=== PATIENT | female | born 1990 | race Caucasian/White ===

== ENCOUNTER 2019-11-26 12:15 | Emergency (ER) | payer OTHER ==
[~2019-11-26] VITALS: Ht 177.8 cm; Wt 102.3 kg
[2019-11-26] MEDS ORDERED: IBUP200C25 PO (12:26)
[2019-11-26] MEDS ORDERED: PENICILLIN V POTASSIUM 500 MG TAB PO ONE (12:45)
[2019-11-26] MEDS ORDERED: IBUPROFEN 600 MG TAB PO ONE (12:45)
[2019-11-26] MEDS ORDERED: LIDOCAINE VISCOUS 2% SOLN 15ML UDC SS ONE (12:45)
[2019-11-26] MEDS ORDERED: IBUP-1022 PO (13:19)
[2019-11-26] MEDS ORDERED: PENI500T PO (13:19)
[2019-11-26] MEDS ORDERED: LIDO1SOL8 PO (13:19)
[2019-11-26 13:20] VITALS: BP 127/73
== END 2019-11-26 13:27 | disposition home or self-care (01) ==
LOC: M ED 12:15
DX: K02.9 Dental caries, unspecified (principal); F17.210 Nicotine dependence, cigarettes, uncomplicated; Z79.899 Other long term (current) drug therapy

== ENCOUNTER 2020-08-15 10:36 | Emergency (ER) | payer OTHER ==
[~2020-08-15] VITALS: Ht 177.8 cm; Wt 102.3 kg
[~2020-08-15 10:36] MED LIST: IBUP-1022 PO; IBUP200C25 PO; LIDO2SOL17 PO; PENI500T PO
[2020-08-15] MEDS ORDERED: FAMOTIDINE INJ 20MG/2ML VIAL (S0028 PER 1) IVP ONE (10:45)
[2020-08-15] MEDS ORDERED: BENA25CA4 PO (11:45)
[2020-08-15] MEDS ORDERED: PRED20TA PO (11:46)
[2020-08-15 12:47] VITALS: BP 116/69
== END 2020-08-15 12:49 | disposition home or self-care (01) ==
LOC: M ED 10:36 → EDBD 10:36 → M ED 12:49
DX: T63.441A Toxic effect of venom of bees, accidental (unintentional), initial encounter (principal); S20.361A Insect bite (nonvenomous) of right front wall of thorax, initial encounter; Y92.9 Unspecified place or not applicable; Y93.9 Activity, unspecified; Y99.9 Unspecified external cause status; F17.200 Nicotine dependence, unspecified, uncomplicated; Z79.899 Other long term (current) drug therapy